=== PATIENT | female | born 1955 | race Caucasian/White ===

== ENCOUNTER → 2020-05-01 | Outpatient (CLI) | payer MEDICARE, OTHER ==
--- NOTE | 2020-05-02 21:39 | RAD ---
EXAM: Shoulder,Left 2 or More Views INDICATION: 64 years Female, SHOULDER PAIN COMPARISON: None available FINDINGS: 4 views of the left shoulder were performed. No fracture or dislocation. No destructive osseous lesion. Mild degenerative change in the shoulder. The acromioclavicular joint is intact. Unremarkable appearance of the visualized soft tissues. The visualized portions of the lung singer are clear. IMPRESSION: Mild degenerative change in the left shoulder without fracture or dislocation. Electronically signed by: Nubia Prabhakar MD 05/02/2020 9:37 PM [facility]
== END ==
LOC: RAD 09:20
PROVIDERS: ATTEND Orthopaedic Surgery
DX: M19.012 Primary osteoarthritis, left shoulder (principal)